=== PATIENT | male | born 2000 | race Caucasian/White ===

== ENCOUNTER 2020-10-31 10:49 | Emergency (ER) | payer SELFPAY ==
[2020-10-31 11:21] VITALS: BP 136/97; PULSE 100; RESP 18; TEMP 36.9; O2SAT 98; BMI 27.6
--- NOTE | 2020-10-31 14:09 | W.ED.COVID ---
HPI - COVID General: Chief Complaint: COVID symptoms Stated Complaint: COUGH/SOB (COVID SYMPTOMS) Time Seen by Provider: 10/31/20 14:08 Source: patient Mode of arrival: ambulatory Limitations: no limitations Triage information: No fever, cough or shortness of breath. No known COVID + exposure last 14 days History of Present Illness: HPI Narrative: 20-year-old male comes in today for complaints of malaise, sore throat, poor appetite, fever and chills. Patient reports illness since Sunday. COVID 19 common symptoms: positive fever(s), chills, non-productive cough, dyspnea, throat pain and nausea COVID Results: SARS-CoV-2 Antigen (Rapid) Negative (Negative) 10/31/20 14:33 10/31/20 Review of Systems General: Reports: 10 or more systems reviewed and unremarkable except in HPI and below Const: Reports: fever(s), chills and malaise ENMT: Reports: throat pain Resp: Reports: dyspnea and non-productive cough GI: Reports: nausea Physical Exam Const: COMMON NORMALS: no acute distress and patient oriented x3 GENERAL APPEARANCE: cooperative HENMT: COMMON NORMALS: normocephalic and Normal external nose present HEAD & SCALP: normal to inspection and normocephalic NOSE: Normal external nose present MOUTH: Normal oral and palatal mucosa present Eye: GENERAL EYE: appearance normal, both eyes and all related structures Neck/C-Spine: COMMON NORMALS: full ROM Chest: COMMONS NORMALS: normal inspection of the chest Resp: COMMON NORMALS: normal respiratory effort EFFORT & INSPECTION: Yes able to speak in complete sentences Cardio: COMMON NORMALS: regular rate and regular rhythm RATE: regular rate RHYTHM: regular rhythm GI: COMMON NORMALS: non-tender Back/Pelvis: COMMON NORMALS: thoracic and lumbar spine normal to inspection Extremity: COMMON NORMALS: normal to inspection Neuro: COMMON NORMALS: patient oriented x3 and moves all extremities Psych: COMMON NORMALS: mental status grossly normal and cooperative Skin: COMMON NORMALS: no rashes or lesions noted GENERAL SKIN EXAM: no rashes or lesions noted Course Vital Signs: Vital signs: Vital Signs Temperature 98.4 F 10/31/20 11:21 Pulse Rate 90 10/31/20 14:51 Respiratory Rate 18 10/31/20 14:51 Blood Pressure 136/97 10/31/20 11:21 Pulse Oximetry 95 10/31/20 14:51 MDM - COVID MDM Narrative: Medical decision making narrative: Patient comes in with illness for about 2 to 3 days. On exam patient skin was warm and dry. Respirations were even lungs were clear to auscultation. Abdomen was soft nontender. Vital signs were normal. Patient had general symptoms including nausea with some vomiting, cough, sore throat. Differential diagnosis includes viral syndrome, SARS Covid 2-19, influenza, dehydration, pneumonia. Chest x-ray was normal. Laboratory values signified may be some mild dehydration but otherwise was normal. SARS Covid testing was negative. Reviewed exam with patient with recommendations for treatment and follow-up. Courage plenty of fluids and Zofran for nausea. Patient reported understanding agreed to plan. Lab Data: Labs: Lab Results 10/31/20 10/31/20 10/31/20 Range/Units 14:33 14:33 14:33 WBC 10.5 H (4.0-10.0) 10^3/ uL RBC 5.37 H (4.1-5.3) 10^6/u L Hgb 16.7 H (11.7-16.6) g/dL Hct 47.6 (42.0-52.0) % MCV 88.6 (80-94) fL MCH 31.1 (28.0-34.0) pg MCHC 35.1 (30.0-36.0) g/dL RDW 11.9 L (12.1-15.1) % Plt Count 378 (130-400) 10^3/c mm MPV 9.9 (7.4-10.4) fL Neut % (Auto) 77.8 % Lymph % (Auto) 15.1 % Tompkins % (Auto) 5.8 % Eos % (Auto) 0.5 % Baso % (Auto) 0.6 % Neut # (Auto) 8.21 H (1.8-7.7) 10^3/u L Lymph # (Auto) 1.6 (0.8-4.8) 10^3/u L Tompkins # (Auto) 0.6 (0.2-0.9) 10^3/u L Eos # (Auto) 0.1 (0.0-0.8) 10^3/u L Baso # (Auto) 0.1 (0.0-0.1) 10^3/u L Nucleated RBC % (a uto) 0 % Nucleated RBCs # 0.0 /100WBC Sodium 140 (136-145) mmol/L Potassium 3.9 (3.5-5.1) mmol/L Chloride 100 (98-107) mmol/L Carbon Dioxide 24 (22-29) mmol/L Anion Gap 19.9 H (5-19) BUN 12 (6-20) mg/dL Creatinine 0.8 (0.7-1.2) mg/dL GFR Calculation 120.9 (90-130) mL/min Glucose 79 (65-115) mg/dL Calculated Osmolal ity 289 (285-295) mOsm/k g Calcium 9.4 (8.5-10.5) mg/dL Total Bilirubin 1.1 (0.15-1.2) mg/dL AST 23 (0-40) U/L ALT 52 H (0-41) U/L Alkaline Phosphata se 76 (40-130) IU/L Total Protein 8.0 (6.6-8.7) g/dL Albumin 5.1 (3.5-5.2) g/dL Globulin 2.9 (1.3-4.6) g/dL SARS-CoV-2 Ag (Rap id) Negative (Negative) COVID Results: SARS-CoV-2 Antigen (Rapid) Negative (Negative) 10/31/20 14:33 10/31/20 Discharge Plan Discharge Patient Disposition: Home Clinical Impression: Viral infection Condition: Stable Prescriptions: New ondansetron HCl 4 mg tablet 4 mg PO Q8H PRN (Reason: Nausea And Vomiting) 5 Days Qty: 10 RF: 0 Discharge Orders: Discharge ED (Routine); Ordered 10/31/20 Ordered By: Zane Salazar Discharge Diet: Advance as tolerated Discharge Activity: Increase activity as tolerated Patient Instructions: Viral Syndrome (ED) Activity Restrictions/Additional Instructions: Use medications as directed. Take medication for nausea to hold down liquids and fluids. Increase diet as tolerated. Push plenty of fluids. Follow-up with primary care as needed. Return to the emergency department for new concerns. Stand Alone Forms: Work/School Release Coding Level of Care Code ED C[employer] for Patty Fwd Exam Comprehensive
--- NOTE | 2020-10-31 14:21 | XRR_ITS ---
PROCEDURE INFORMATION: Exam: XR Chest, 1 View Exam date and time: 10/31/2020 2:40 PM Age: 20 years old Clinical indication: Cough TECHNIQUE: Imaging protocol: XR of the chest Views: 1 view. COMPARISON: No relevant prior studies available. FINDINGS: Lungs: The lungs are clear. Pleural space: Unremarkable. No pleural effusion. No pneumothorax. Heart/Mediastinum: Unremarkable. No cardiomegaly. Bones/joints: Unremarkable. XR/XR chest 1V portable [id number] IMPRESSION: No acute cardiopulmonary abnormality.
[2020-10-31 14:51] VITALS: PULSE 90; RESP 18; O2SAT 95
[2020-10-31 14:53] LABS: Basophils # 0.1 10^3/uL (0.0-0.1); Basophils % 0.6 %; Eosinophils # 0.1 10^3/uL (0.0-0.8); Eosinophils % 0.5 %; Hematocrit 47.6 % (42.0-52.0); Hemoglobin 16.7 g/dL (11.7-16.6); Lymphocytes # 1.6 10^3/uL (0.8-4.8); Lymphocytes % 15.1 %; Mean Corpuscular HGB Conc 35.1 g/dL (30.0-36.0); Mean Corpuscular Hemoglobin 31.1 pg (28.0-34.0); Mean Corpuscular Volume 88.6 fL (80-94); Mean Platelet Volume 9.9 fL (7.4-10.4); Monocytes # 0.6 10^3/uL (0.2-0.9); Monocytes % 5.8 %; Neutrophils # 8.21 10^3/uL (1.8-7.7); Neutrophils % 77.8 %; Nucleated Red Blood Cells % 0 %; Platelet Count 378 10^3/cmm (130-400); Red Blood Count 5.37 10^6/uL (4.1-5.3); Red Cell Distribution Width 11.9 % (12.1-15.1); White Blood Count 10.5 10^3/uL (4.0-10.0)
[2020-10-31 15:07] LABS: Alanine Aminotransferase 52 U/L (0-41); Albumin Level 5.1 g/dL (3.5-5.2); Alkaline Phosphatase 76 IU/L (40-130); Anion Gap 19.9 (5-19); Aspartate Amino Transferase 23 U/L (0-40); Blood Urea Nitrogen 12 mg/dL (6-20); Calcium 9.4 mg/dL (8.5-10.5); Carbon Dioxide 24 mmol/L (22-29); Chloride 100 mmol/L (98-107); Globulin 2.9 g/dL (1.3-4.6); Glomerular Filtration Rate 120.9 mL/min (90-130); Glucose 79 mg/dL (65-115); Osmolality Calculated 289 mOsm/kg (285-295); Potassium 3.9 mmol/L (3.5-5.1); Sodium 140 mmol/L (136-145); Total Bilirubin 1.1 mg/dL (0.15-1.2)
[2020-10-31 15:36] LABS: SARS Covid-2 Antigen Negative (Negative)
[2020-10-31 15:53] VITALS: BP 115/66; PULSE 92; RESP 18; TEMP 37.2; O2SAT 96
== END 2020-10-31 15:55 | disposition home or self-care (01) ==
PROVIDERS: Emergency Provider Nurse Practitioner Family
DX: B34.9 Viral infection, unspecified (principal)
CPT/HCPCS: 12345; 71045; 80053; 85025; 87426; 99282; 99283